=== PATIENT | male | born 1995 | race Caucasian/White ===

== ENCOUNTER 2017-04-02 17:22 | Emergency (ER) | payer OTHER ==
[~2017-04-02] VITALS: Ht 175.3 cm; Wt 59.0 kg
[2017-04-02 17:29] VITALS: Ht 175.3 cm; Wt 59.0 kg
--- NOTE | 2017-04-02 18:58 | RADRPT ---
PROCEDURE: XR Foot. CLINICAL INDICATION: Great toe injury TECHNIQUE: Three views of the right foot are available for review. COMPARISON: None available FINDINGS: There is no acute osseous or articular abnormality. No evidence for fracture. Bone mineral density is preserved. The articular surfaces are smooth without evidence of marginal erosions. The soft tis sues are intact without evidence of calcifications. IMPRESSION: 1. No acute osseous abnormality. RPTAT: HH .Julius Castillo MD, MD Date Time Electronically viewed and signed by .Julius Castillo MD, MD on 04/02/2017 18:57 .d/
[2017-04-02] MEDS ORDERED: KETOROLAC 30 MG INJ IM STA (19:35)
[2017-04-02] MEDS ORDERED: IBUP400T22 PO (19:35)
--- NOTE | 2017-04-02 19:44 | ERD ---
ER Documentation Chief Complaint Date/Time DATE: 04/02/17 TIME: 19:38 Chief Complaint right foot 1st toe hit today with hammer. HPI 21-year-old male patient with no significant past medical history presents the ED complaining of a right foot injury that occurred earlier today. Reports that he dropped a hammer onto his right great toe. States that he was trying to break the [place] at home. Reports that it started to get red and slightly swollen in the base of the great toe region. Denies taking any medications for his pain. Describes the pain as achy and rates it a 8 out of 10. Denies any loss of sensation, loss of range of motion, weakness, numbness or tingling, fever, chills, nausea, vomiting. Denies any other injuries. ROS All systems reviewed and are negative except as per history of present illness. Medications Home Meds Active Scripts Ibuprofen* (Motrin*) 400 Mg Tab, 400 MG PO Q6, #30 TAB Prov:MICHAEL CARVALHO PA-C 04/02/17 Allergies Allergies: Coded Allergies: No Known Allergy (Unverified , 04/02/17) PMhx/Soc Medical and Surgical Hx: pt denies Medical Hx, pt denies Surgical Hx History of Surgery: No Anesthesia Reaction: No Hx Neurological Disorder: No Hx Respiratory Disorders: No Hx Cardiac Disorders: No Hx Psychiatric Problems: No Hx Miscellaneous Medical Probl: No Hx Alcohol Use: No Hx Substance Use: No Hx Tobacco Use: No Smoking Status: Never smoker Physical Exam Vitals Vital Signs Date Time Temp Pulse Resp B/P Pulse Ox O2 Delivery O2 Flow Rate FiO2 04/02/17 17:29 98.7 107 18 132/72 99 Physical Exam Const: [id number], well-nourished. In no acute distress. Head: Atraumatic, normocephalic Eyes: Normal Conjunctiva without injection ENT: Normal external ear, nose and mouth. Neck: Full range of motion. No meningismus. Resp: Clear to auscultation bilaterally. No wheezing, rhonchi, rales, or crackles. No accessory muscle use. No retractions. Cardio: Regular rate and rhythm, no murmurs Skin: No petechiae or rashes Back: No midline tenderness. No CVA tenderness. Ext: No cyanosis, or edema. Cap refill less than 2 seconds. Distal pulses intact bilaterally. Tenderness palpation of the right great toe at the base with slight erythema and edema of the dorsal aspect of patient's right foot. Full range of motion of the IP and MTP joints bilaterally. Patient is limping with ambulation due to the pain. Neur: Awake and alert. Normal gait and coordination. Muscle strength 5/5. Sensation intact bilaterally. Psych: Normal Mood and Affect Results 24 hrs Current Medications Medications (Trade) Dose Ordered Sig/Mariaa Route PRN Reason Start Time Stop Time Status Last Admin Dose Admin Ketorolac Tromethamine (Toradol) 30 mg ONCE STAT IM 04/02/17 19:35 04/02/17 19:36 DC 04/02/17 19:48 Procedures/MDM This is a 21-year-old male patient with no significant past medical history presents the ED complaining of a right great toe injury. Patient is afebrile and nontoxic-appearing. Patient is normal vital signs. A right foot x-ray was ordered to further evaluate patient. Patient was treated here with Toradol with improvement of his pain. PROCEDURE: XR Foot. CLINICAL INDICATION: Great toe injury TECHNIQUE: Three views of the right foot are available for review. COMPARISON: None available FINDINGS: There is no acute osseous or articular abnormality. No evidence for fracture. Bone mineral density is preserved. The articular surfaces are smooth without evidence of marginal erosions. The soft tissues are intact without evidence of calcifications. IMPRESSION: 1. No acute osseous abnormality. Patient is placed in a tavo wrap. Crutches were given to patient to help with ambulation. Splint Assessment: Neurovascularly intact pre and post tavo wrap placement with good fit. Patient's extremity symptoms have stabilized while they have been evaluated in the department and are appropriate for outpatient follow up. No evidence of fractures, dislocations, compartment syndrome, neurologic injury, vascular injury, open joint, open fracture, tendon laceration, septic arthritis, osteomyelitis, DVT, foreign body, or other emergent conditions. Discharge medications: Ibuprofen Follow up with primary care physician in 1-2 days. Instructed patient to return to the ED sooner for any worsening symptoms. Patient's questions were answered. Patient understood and agreed with discharge plan. Patient discharged stable. Departure Diagnosis: Primary Impression: Injury of foot Encounter type: initial encounter Laterality: right Qualified Code: S99.921A - Injury of foot, right, initial encounter Condition: Stable Patient Instructions: Contusion, Foot Referrals: CAYDEN HINES (PCP) [facility] YOU HAVE RECEIVED A MEDICAL SCREENING EXAM AND THE RESULTS INDICATE THAT YOU DO NOT HAVE A CONDITION THAT REQUIRES URGENT TREATMENT IN THE EMERGENCY DEPARTMENT. FURTHER EVALUATION AND TREATMENT OF YOUR CONDITION CAN WAIT UNTIL YOU ARE SEEN IN YOUR DOCTORS OFFICE WITHIN THE NEXT 1-2 DAYS. IT IS YOUR RESPONSIBILITY TO MAKE AN APPOINTMENT FOR FOLOW-UP CARE. IF YOU HAVE A PRIMARY DOCTOR --you should call your primary doctor and schedule an appointment IF YOU DO NOT HAVE A PRIMARY DOCTOR YOU CAN CALL OUR PHYSICIAN REFERRAL HOTLINE AT IF YOU CAN NOT AFFORD TO SEE A PHYSICIAN YOU CAN CHOSE FROM THE FOLLOWING [facility] [address] [facility]. [facility] [address] [facility] [facility] [address] [facility] [address] [facility] [facility] [address] [facility]. [facility] [address] [facility]. [facility] YOU HAVE RECEIVED A MEDICAL SCREENING EXAM AND THE RESULTS INDICATE THAT YOU DO NOT HAVE A CONDITION THAT REQUIRES URGENT TREATMENT IN THE EMERGENCY DEPARTMENT. FURTHER EVALUATION AND TREATMENT OF YOUR CONDITION CAN WAIT UNTIL YOU ARE SEEN IN YOUR DOCTORS OFFICE WITHIN THE NEXT 1-2 DAYS. IT IS YOUR RESPONSIBILITY TO MAKE AN APPOINTMENT FOR FOLOW-UP CARE. IF YOU HAVE A PRIMARY DOCTOR --you should call your primary doctor and schedule and appointment IF YOU DO NOT HAVE A PRIMARY DOCTOR YOU CAN CALL OUR PHYSICIAN REFERRAL HOTLINE AT . IF YOU CAN NOT AFFORD TO SEE A PHYSICIAN YOU CAN CHOSE FROM THE FOLLOWING [facility]: [facility] [address] [place] [address] [facility] [address] [place] [address] [facility] [address] [place] [address] [facility]SPECIALTIES Additional Instructions: Call your primary care doctor for an appointment during the next 2-3 days. If pain still continues, obtain a referral from your family doctor for an orthopedic physician. See the doctor sooner or return here if your condition worsens before your appointment time. MICHAEL CARVALHO PA-C Apr 02, 2017 19:44
== END 2017-04-02 20:00 | disposition home or self-care (01) ==
LOC: FTE 17:22
DX: S99.921A Unspecified injury of right foot, initial encounter (principal); W20.8XXA Other cause of strike by thrown, projected or falling object, initial encounter; Y92.9 Unspecified place or not applicable
CPT/HCPCS: 73630; 96372; J1885; Z7502